=== PATIENT | male | born 1955 | race Caucasian/White ===

== ENCOUNTER → 2016-12-25 | Day surgery (SDC) | payer OTHER ==
[~2016-12-25] VITALS: Ht 185.4 cm; Wt 122.0 kg
[~2016-12-25] MED LIST: 0.9% Sodium Chloride 1,000 ML IV PRN; ATOR20TA PO; HYG25 PO; Sodium Chloride LOK Flush 10 mL Syringe IV PRN; fentaNYL-PF 50 mCg/mL 2 mL Inj IVPUSH PRN
[2016-12-25 09:08] VITALS: BP 129/81; PULSE 67; RESP 16; O2SAT 96
[2016-12-25 10:07] VITALS: BP 125/73; PULSE 64; RESP 12; O2SAT 97
[2016-12-25 10:22] VITALS: BP 114/71; PULSE 70; RESP 12; O2SAT 98
[2016-12-25 10:36] VITALS: BP 121/69; PULSE 66; RESP 14; O2SAT 96
--- NOTE | 2016-12-25 20:17 | ENDO ---
[address] [address] ENDOSCOPY PROCEDURE PATIENT: MAUREEN SEN : 1955 MR#: [id number] ADMIT: 12/25/2016 JOB ID: [id number] PRIMARY PROVIDER: Faizan Meléndez MD. PROCEDURE: Colonoscopy with cold forceps polypectomy. INDICATIONS: A 61-year-old male with a personal history of colon polyps. He had a large polyp removed by way of piecemeal polypectomy from the transverse last year and was recommended for one year followup. EQUIPMENT: F H 188 AL. SEDATION: 1. 5 mg Versed. 2. 100 mcg fentanyl. COMPLICATIONS: None identified. BOWEL PREPARATION: Fair, adequate exam. PROCEDURE INFORMATION: After the risks and benefits were explained, written and verbal informed consent was obtained. The patient was brought into the endoscopy suite and placed into the left lateral decubitus position. Sedation was achieved using the above-stated medications with the addition of oxygen via nasal cannula. A digital rectal examination was accomplished. Mild internal hemorrhoids were noted. The scope was introduced into the rectum and advanced to the cecum as identified by the appendiceal orifice and ileocecal valve. The scope was slowly withdrawn to carefully examine the mucosa for any defects or lesions. Retroflexed views were accomplished in the rectum. The colon was decompressed. The scope removed the patient who tolerated the procedure well. FINDINGS: Some diverticulosis was seen in the left colon. In the proximal transverse, there was a diminutive, 3 mm polyp removed with cold forceps. I did not appreciate any residual polyp other than the small one described above throughout the transverse. No other significant pathology throughout. Retroflexed views were unremarkable. ENDOSCOPIC DIAGNOSES: 1. Diminutive polyp. 2. Diverticulosis. RECOMMENDATIONS: 1. Await histopathology. 2. Considering the size of the polyp removed in 2016, I would recommend a repeat colonoscopy in three years' time.
--- NOTE | 2016-12-26 17:27 | PATH ---
SURGICAL PATHOLOGY Attending Physician:Divya Elias CASE STATUS: Signed Out PATIENT NAME: MAUREEN SEN PID: [id number] : 1955 DATE COLLECTED:12/25/2016 16:39 SPECIMEN: Colon, Polyp CLINICAL HISTORY: 1). TRANSVERSE COLON POLYP FINAL DIAGNOSIS: Transverse Colon Polyp, Biopsy: Tubular adenoma. ICD10: D12.3 GROSS DESCRIPTION: The specimen is received in one formalin filled container labeled with the patient's name, sublabeled "polyp transverse colon" and consists of a 0.2 x 0.2 x 0.2 CM portion of tissue which is entirely submitted in one cassette. 12/25/2016DC ICD-9 CODES: CPT CODES: 1: 74842 Electronically Signed Out Brown Bowman MD, Ph.D. [facility] Pathology [facility], [place] [address] Technical component performed at [facility], [address] [place] [address] Ave[address], [place], [address]
== END | disposition home or self-care (01) ==
LOC: END 08:50
PROVIDERS: ATTEND Internal Medicine Gastroenterology
DX: Z12.11 Encounter for screening for malignant neoplasm of colon (principal); D12.3 Benign neoplasm of transverse colon; K57.30 Diverticulosis of large intestine without perforation or abscess without bleeding; Z86.010 Personal history of colon polyps; I10 Essential (primary) hypertension; F32.9 Major depressive disorder, single episode, unspecified; G47.30 Sleep apnea, unspecified; F17.210 Nicotine dependence, cigarettes, uncomplicated
CPT/HCPCS: 45380; 99153; G0500; J2250; J3010; J7030